=== PATIENT | female | born 2000 | race Caucasian/White ===

== ENCOUNTER 2025-07-24 19:17 | Emergency (ER) | payer OTHER ==
[2025-07-24] MEDS ORDERED: Amoxicillin/Potassium Clav 875 MG TAB ONE (19:36)
== END 2025-07-24 19:55 | disposition home or self-care (01) ==
LOC: NAV ERS 19:17
DX: S60.372A Other superficial bite of left thumb, initial encounter (principal); Z23 Encounter for immunization; W54.0XXA Bitten by dog, initial encounter; Y93.89 Activity, other specified
CPT/HCPCS: 90471; 90715